=== PATIENT | male | born 1970 | race African-American/Black ===

== ENCOUNTER 2020-05-13 15:45 | Emergency (ER) | payer BC ==
[~2020-05-13] VITALS: Ht 170.2 cm; Wt 130.0 kg
[2020-05-13] MEDS ORDERED: B121000 MC1 PO (18:48)
[2020-05-13] MEDS ORDERED: VITAMIN D2000 UNI1 PO (18:49)
[2020-05-13] MEDS ORDERED: ZYRTEC10 MG PO (18:50)
[2020-05-13] MEDS ORDERED: FISH OIL1000 MG PO (18:50)
[2020-05-13] MEDS ORDERED: MEDDOSEPAK PO (19:27)
[2020-05-13] MEDS ORDERED: NAPROXEN375 MG PO (19:27)
[2020-05-13 20:02] VITALS: BP 139/81
== END 2020-05-13 20:02 | disposition home or self-care (01) | DRG 563 ==
LOC: ED 15:45
DX: S63.91XA Sprain of unspecified part of right wrist and hand, initial encounter (principal); F17.200 Nicotine dependence, unspecified, uncomplicated; X58.XXXA Exposure to other specified factors, initial encounter

== ENCOUNTER 2021-11-30 15:13 | Emergency (ER) | payer OTHER, BC ==
[2021-11-30] VITALS (13 sets, daily range): BP systolic 131–197; BP diastolic 84–133
[~2021-11-30] VITALS: Ht 170.2 cm; Wt 119.0 kg
[~2021-11-30 15:13] MED LIST: B121000 MC1 PO; FISH OIL1000 MG PO; MEDDOSEPAK PO; NAPROXEN375 MG PO; VITAMIN D2000 UNI1 PO; ZYRTEC10 MG PO
[2021-11-30] MEDS ORDERED: AMLODIPINE PO (15:45)
[2021-11-30 15:48] LABS: HEMATOCRIT 47.3 % (39.0-50.0); HEMOGLOBIN 15.8 g/dl (14.0-18.0); IMMATURE GRANULOCYTES 0.2 % (0.0-5.0); MEAN CELL VOLUME 85.5 fL CALC (80.0-100.0); MEAN CORPUSCULAR HGB 28.6 pG CALC (26.0-32.0); MEAN CORPUSCULAR HGB CONC 33.4 g/dL CAL (32.0-36.0); NEUT# 9.79 thou/uL (1.82-7.42); RED BLOOD COUNT 5.53 mill/uL (4.70-6.10); RED CELL DISTRI WIDTH 14.7 % (11.5-15.5)
[2021-11-30 16:01] LABS: ALBUMIN 4.6 g/dL (3.2-5.0); ALKALINE PHOSPHATASE 89 u/l (38-126); ANION GAP 16 (6-22 (CALC)); BILIRUBIN, TOTAL 1.2 mg/dL (0.0-1.4); BUN 17 mg/dL (9-20); BUN/CREATININE RATIO 18 (12-20 (CALC)); CARBON DIOXIDE 22 mmol/l (22-30); CHLORIDE 108 mmol/l (95-108); CREATININE 0.9 mg/dL (0.7-1.3); GFR FOR AFR.AMER. > 60 ML/MIN (>=60 (CALC)); GFR OTHER RACES > 60 ML/MIN (>=60 (CALC)); SGOT/AST 101 u/l (17-59); SODIUM 141 mmol/l (137-146); TOTAL PROTEIN 8.2 g/dL (6.3-8.2)
[2021-11-30] MEDS ORDERED: NAPROXEN500 MG PO (17:54)
[2021-11-30] MEDS ORDERED: CYCLOBENZAPRINE10 MG PO (17:54)
== END 2021-11-30 18:04 | disposition home or self-care (01) | DRG 552 ==
LOC: ED 15:13
PROVIDERS: Nurse Practitioner
DX: S16.1XXA Strain of muscle, fascia and tendon at neck level, initial encounter (principal); F17.200 Nicotine dependence, unspecified, uncomplicated; V48.5XXA Car driver injured in noncollision transport accident in traffic accident, initial encounter